=== PATIENT | male | born 1960 | race Caucasian/White ===

== ENCOUNTER 2017-05-09 18:20 | Emergency (ER) | payer OTHER, BC ==
[2017-05-09 18:45] VITALS: BP 149/83
[2017-05-09] MEDS ORDERED: Proparacaine 0.5% Ophth Soln 15 ML Bottle ONE (19:10)
[2017-05-09] MEDS ORDERED: Benoxinate/Fluorescein 0.4-0.25% Ophth Soln 5 ML Bottle ONE (19:10)
[2017-05-09] MEDS ORDERED: Erythromycin Base 0.5% Ophth Oint 1 GM Tube EYELF ONE (19:21)
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
[2017-05-09] MEDS ORDERED: Proparacaine 0.5% Ophth Soln 15 ML Bottle EYELF ONE (19:33)
[2017-05-09] MEDS ORDERED: Benoxinate/Fluorescein 0.4-0.25% Ophth Soln 5 ML Bottle EYELF ONE (19:33)
== END 2017-05-09 19:55 | disposition home or self-care (01) ==
LOC: JD.ED 18:20
DX: T54.2X1A Toxic effect of corrosive acids and acid-like substances, accidental (unintentional), initial encounter (principal); T26.62XA Corrosion of cornea and conjunctival sac, left eye, initial encounter; Y99.0 Civilian activity done for income or pay
CPT/HCPCS: 99283; A9270

== ENCOUNTER 2019-09-14 03:15 | Emergency (ER) | payer BC, OTHER ==
[2019-09-14 03:22] VITALS: BP 135/84; PULSE 58
[2019-09-14] MEDS ORDERED: Acetaminophen/HYDROcodone 325-5 MG Tab PO ONE (04:16)
[2019-09-14] MEDS ORDERED: Orphenadrine 100 MG Tab.ER PO STA (04:16)
[2019-09-14] MEDS ORDERED: Ibuprofen 600 MG Tab PO ONE (04:17)
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
== END 2019-09-14 06:59 | disposition home or self-care (01) ==
LOC: JD.ED 03:15
DX: G89.29 Other chronic pain (principal); M54.5 Low back pain; E78.00 Pure hypercholesterolemia, unspecified; M10.9 Gout, unspecified; E66.9 Obesity, unspecified; Z68.38 Body mass index [BMI] 38.0-38.9, adult; Z79.899 Other long term (current) drug therapy; Z79.82 Long term (current) use of aspirin
CPT/HCPCS: 99284; A9270